=== PATIENT | female | born 1980 | race Caucasian/White ===

== ENCOUNTER 2018-06-06 19:52 | Emergency (ER) | END 2018-06-06 22:33 | disposition home or self-care (01) ==

== ENCOUNTER 2018-06-14 03:14 | Emergency (ER) | END 2018-06-14 07:15 | disposition home or self-care (01) ==

== ENCOUNTER 2018-12-22 22:40 | Emergency (ER) | payer SELFPAY ==
[~2018-12-22] VITALS: Ht 175.3 cm; Wt 115.2 kg
[~2018-12-22 22:40] MED LIST: ACET1TAB40 PO; CEPH-443 PO; IBUP800T48 PO
[2018-12-22 22:43] VITALS: BP 153/69; PULSE 89; RESP 22; Ht 175.3 cm; Wt 115.2 kg
== END 2018-12-23 06:20 | disposition left against medical advice (07) ==
LOC: FTE 22:40
DX: Z53.21 Procedure and treatment not carried out due to patient leaving prior to being seen by health care provider (principal)

== ENCOUNTER 2019-03-26 04:08 | Emergency (ER) | payer OTHER ==
[~2019-03-26] VITALS: Ht 175.3 cm; Wt 110.6 kg
[~2019-03-26 04:08] MED LIST changes: +ALBU8.5H8 INH; +AMOX1TAB10 PO; +AZIT250T PO; +BENZ-6 PO
[2019-03-26 04:12] VITALS: Ht 175.3 cm; Wt 110.6 kg
[2019-03-26] MEDS ORDERED: GUAIFENESIN 20 MG/ML 5ML CUP PO ONE (05:30)
[2019-03-26] MEDS ORDERED: CEFTRIAXONE 1 GM INJ IM ONE (05:30)
[2019-03-26 06:11] VITALS: BP 122/68; PULSE 100; RESP 22
== END 2019-03-26 06:12 | disposition home or self-care (01) ==
LOC: FTE 04:08
DX: J40 Bronchitis, not specified as acute or chronic (principal); J18.9 Pneumonia, unspecified organism; Z87.891 Personal history of nicotine dependence
CPT/HCPCS: 71046; 81025; 96372; J0696; Z7502; Z7610